=== PATIENT | male | born 1995 | race African-American/Black ===

== ENCOUNTER 2020-07-30 09:32 | Emergency (ER) | payer OTHER, SELFPAY ==
[2020-07-30 09:56] VITALS: BP 147/77; PULSE 93; RESP 16; TEMP 37.2; O2SAT 98; BMI 38.0
--- NOTE | 2020-07-30 10:15 | ED_ITS ---
HPI - Eye Problem General Chief complaint: Eye Problems Stated complaint: eye pain Time Seen by Provider: 07/30/20 10:00 Source: patient Mode of arrival: ambulatory History of Present Illness HPI Narrative: 25-year-old male presenting to ED complaining of right eye pain/ swelling since Thursday with slight drainage / blurry vision. denies wearing glasses or contacts. Denies trauma to area. Denies visual loss, pain with EOMs, FB sensation/known FB * Related Data Allergies Allergy/AdvReac Type Severity Reaction Status Date / Time kiwi [KIWI] Allergy Intermediate SWELLING Unverified 07/05/20 17:59 apple [APPLE] Allergy Unknown UNKOWN Unverified 07/05/20 17:59 banana [BANANA] Allergy Unknown UNKOWN Unverified 07/05/20 17:59 chicken derived Allergy Unknown UNKNOWN Unverified 07/05/20 17:59 ibuprofen [IBUPROFEN] Allergy Unknown HIVES Unverified 07/05/20 17:59 milk [MILK] Allergy Unknown UNKNOWN Unverified 07/05/20 17:59 peanut [PEANUT] Allergy Unknown UNKOWN Unverified 07/05/20 17:59 rice Allergy Unknown UNKNOWN Unverified 07/05/20 17:59 shrimp Allergy Unknown UNKNOWN Unverified 07/05/20 17:59 strawberry [STRAWBERRY] Allergy Unknown UNKNOWN Unverified 07/05/20 17:59 tomato [TOMATO] Allergy Unknown UNKNOWN Unverified 07/05/20 17:59 wheat [WHEAT] Allergy Unknown UNKNOWN Unverified 07/05/20 17:59 Review of Systems Review of Systems: Constitutional: No Weight loss, No Fever, No Chills ENT/Mouth: No Ear Pain, No Nasal Congestion, No Sinus Pain, No sore throat, No Rhinorrhea Eye: + eye pain, + blurry vision, no visual loss, + slight drainage /watering Cardiovascular: No Chest Pain, No SOB Respiratory: No Cough, No Sputum, No Wheezing Gastrointestinal: No Nausea, No Vomiting Skin: No Skin Lesions, No rash Yes all other systems are reviewed and are negative [facility] Past Medical History Attestation statement: The following information was validated with the patient. Medical History Asthma Eczema Meningitis Surgical History (Updated 07/30/20 @ 10:03 by Rosemary Sanchez) S/P appendectomy Social History Social History Advance Directives: No Advance Directives Information Provided: No Physical Exam Vital Signs: Vital Signs: Vital Signs Temp Pulse Resp BP Pulse Ox 07/30/20 09:56 98.9 F 93 16 147/77 H 98 Body Mass Index 38.0 Const: General: cooperative and healthy appearing Orientation/consciousness: patient oriented x3 Limitations: no limitations HENMT: Head: Yes normal to inspection Ears: hearing grossly normal bilaterally General nose exam: Normal external nose present Face and sinus: Yes normal facial exam Eyes: Other: VA 20/15 L eye 20/13 R eye General: appearance normal, both eyes and all related structures Visual Ryan: normal visual ryan by confrontation Eyelids: Yes eyelid abnormality ( right lower eyelid with internal stye. +Swelling/erythema and tenderness) Sclerae: sclerae normal Corneas: corneas normal Pupils: Equal, round and reactive pupils present EOM: EOMs intact bilaterally Direct Ophthalmoscopy: normal light reflex and no photophobia Neck: Neck: Yes normal visual inspection Resp: Effort & Inspection: normal respiratory effort Cardio: Rate: regular rate Skin: Rashes: no rashes Wounds: no wounds Neuro: General: patient oriented x3 Cranial nerves: Yes Equal, round and reactive pupils present Gait exam (Neuro): Normal gait present Extrem: General: Yes normal to inspection MDM - Eye Problem MDM Narrative Medical decision making narrative: physical exam consistent with Internal lower lid stye day. Low concern for corneal abrasion/ cellulitis or conjunctivitis Discharge Plan Discharge Clinical Impression: Hordeolum internum of right lower eyelid Patient Disposition: Home, Self-Care Instructions: Stye (ED) Additional Instructions: you have a stye in your eye. apply warm compresses multiple times a day, and milk the area keep dry and clean Do not put it contacts, or anything in her eye Follow up with her doctor If pain persists or worsens, he developed visual change or loss return to the ED Referrals: Kevin White [Physician] - 1 week (as needed) Stand Alone Forms: Work/School Release
[2020-07-30] MEDS: Tetracaine HCl/PF 0.5% Oph Sol 4 ML DROPS 1 DROP EYE-RIGHT (10:41)
[2020-07-30] MEDS: Fluorescein Sodium STRIP 1 STRIP EYE-RIGHT (10:41)
== END 2020-07-30 10:43 | disposition home or self-care (01) ==
PROVIDERS: Emergency Provider Emergency Medicine
DX: H00.022 Hordeolum internum right lower eyelid (principal)
CPT/HCPCS: 99283; 99284

== ENCOUNTER 2020-09-20 06:08 | Emergency (ER) | payer OTHER, SELFPAY ==
[2020-09-20 06:11] VITALS: BP 145/84; PULSE 88; RESP 16; TEMP 37.4; O2SAT 98; BMI 38.0
--- NOTE | 2020-09-20 06:37 | ED_ITS ---
HPI - URI/Sore Throat General Chief Complaint: Upper Respiratory Symptoms Stated Complaint: covid symptoms Time Seen by Provider: 09/20/20 06:25 Source: patient Mode of arrival: ambulatory Limitations: no limitations History of Present Illness HPI Narrative: This Is a 25-year-old male without significant past medical history who presents with body aches, headache, dry cough, but denies any shortness of breath or sore throat and states that there were some coworkers that he was exposed to that were known to be COVID-19 positive. Related Data Allergies Allergy/AdvReac Type Severity Reaction Status Date / Time kiwi [KIWI] Allergy Intermediate SWELLING Verified 09/20/20 06:22 apple [APPLE] Allergy Unknown UNKOWN Verified 09/20/20 06:22 banana [BANANA] Allergy Unknown UNKOWN Verified 09/20/20 06:22 chicken derived Allergy Unknown UNKNOWN Verified 09/20/20 06:22 ibuprofen [IBUPROFEN] Allergy Unknown HIVES Verified 09/20/20 06:22 milk [MILK] Allergy Unknown UNKNOWN Verified 09/20/20 06:22 peanut [PEANUT] Allergy Unknown UNKOWN Verified 09/20/20 06:22 rice Allergy Unknown UNKNOWN Verified 09/20/20 06:22 shrimp Allergy Unknown UNKNOWN Verified 09/20/20 06:22 strawberry [STRAWBERRY] Allergy Unknown UNKNOWN Verified 09/20/20 06:22 tomato [TOMATO] Allergy Unknown UNKNOWN Verified 09/20/20 06:22 wheat [WHEAT] Allergy Unknown UNKNOWN Verified 09/20/20 06:22 Review of Systems Review of Systems: Pertinent positives and negatives as stated in HPI 10 point review of systems otherwise negative [facility] Past Medical History Medical History Asthma Eczema Meningitis Surgical History S/P appendectomy Social History Social History Smoking Status: Never smoker Advance Directives: No Advance Directives Information Provided: No Physical Exam Vital Signs: Vital Signs: Last Vital Signs Temp 99.3 F 09/20/20 06:11 Pulse 88 09/20/20 06:11 Resp 16 09/20/20 06:11 BP 145/84 H 09/20/20 06:11 Pulse Ox 98 09/20/20 06:11 Body Mass Index 38.0 VITAL SIGNS: Reviewed. GENERAL: Well developed, well nourished, in no acute distress. HEAD: Normocephalic/atraumatic, EYES: PERRLA, EOMI intact without pain, no nystagmus/pallor/icterus noted EARS: Ext canals without abnormality, TMs non-bulging and non-erythematous NOSE: Nares patent bilateral OROPHARYNX: no oral lesions noted, posterior pharynx clear and non-erythematous without noted tonsillar enlargement/erythema/exudates NECK: Supple, no adenopathy LUNGS: Normal breath sounds. No adventitious sounds or accessory muscle use. SpO2<98> CARDIOVASCULAR: Regular rate and rhythm without noted murmurs, no JVD or lower extremity edema. ABDOMEN: Soft, non-tender, non-distended with bowel sounds. No rigidity. No guarding. No palpable masses or hernias noted MUSCULOSKELETAL: No tenderness, deformities, or effusions noted on gross inspection. EXTREMITIES: No cyanosis, clubbing or edema. SKIN: Inspection of the skin reveals no rashes, ulcerations, jaundice, pallor, or petechiae. NEUROLOGIC: Alert and oriented x 4. Strength and sensation to light touch were grossly intact x 4. Course Course Course Narrative: This is a 25-year-old male with history and clinical presentation most consistent with viral syndrome, he has not gotten his flu shot yet this year either, and is not noted to be hypoxic /tachypneic / tachycardic and was swabbed for COVID-19 this morning. He acknowledges understanding that he will need to self quarantine and tell he has called with the results. Patient was discharged in stable condition. Discharge Plan Discharge Clinical Impression: Viral syndrome Patient Disposition: Home, Self-Care Instructions: Viral Syndrome (ED) Additional Instructions: 1. Tylenol 1000 mg, orally, every 6 hours as needed for temperatures greater than 100.4 or body aches. Do not exceed 4000 mg within 24 hours. 2. ibuprofen 400 mg, orally with milk or food, every 6 hours as needed for temperatures greater than 100.4. 3. Increase fluid hydration especially with water. 4. you have been swabbed for COVID-19 today and are required by the [facility] to self quarantine until your called with the results. You should follow all [place] state guidelines regarding COVID-19 exposure. The patient and/or family acknowledge understanding of results (as applicable), diagnosis, treatment plan, need for follow up, and symptoms that should prompt a return to the emergency room. Referrals: Physician,None [Primary Care Provider] - 2 days
== END 2020-09-20 06:57 | disposition home or self-care (01) ==
PROVIDERS: Emergency Provider Student in an Organized Health Care Education/Training Program
DX: B34.9 Viral infection, unspecified (principal); Z20.828 Contact with and (suspected) exposure to other viral communicable diseases; J45.909 Unspecified asthma, uncomplicated
CPT/HCPCS: 99283; U0003

== ENCOUNTER 2021-02-22 11:47 | Emergency (ER) | payer OTHER, SELFPAY ==
--- NOTE | ~2021-02-22 | XR_ITS ---
EXAMINATION: XR ANKLE, RIGHT XR FOOT, RIGHT CLINICAL INFORMATION: Right foot injury. COMPARISON: None TECHNIQUE: 3 views right foot. 2 views right ankle. FINDINGS: Right foot: There is no visible acute fracture, dislocation or subluxation. The soft tissues are normal. Right ankle: There is bimalleolar soft tissue swelling, slightly greater on the lateral side. No visible fracture seen. There are 2 small bone fragments inferior to lateral malleolus likely related to old injury. A small bone fragment is also seen inferior to medial malleolus likely old injury, as well. XR/XR ankle RT min 3V IMPRESSION: No acute fracture or dislocation right ankle or right foot. Bimalleolar soft tissue swelling but no acute fracture seen in right ankle. There are old avulsion fracture fragments tip of medial and lateral malleolus.
--- NOTE | ~2021-02-22 | XR_ITS ---
EXAMINATION: XR ANKLE, RIGHT XR FOOT, RIGHT CLINICAL INFORMATION: Right foot injury. COMPARISON: None TECHNIQUE: 3 views right foot. 2 views right ankle. FINDINGS: Right foot: There is no visible acute fracture, dislocation or subluxation. The soft tissues are normal. Right ankle: There is bimalleolar soft tissue swelling, slightly greater on the lateral side. No visible fracture seen. There are 2 small bone fragments inferior to lateral malleolus likely related to old injury. A small bone fragment is also seen inferior to medial malleolus likely old injury, as well. XR/XR foot RT min 3V IMPRESSION: No acute fracture or dislocation right ankle or right foot. Bimalleolar soft tissue swelling but no acute fracture seen in right ankle. There are old avulsion fracture fragments tip of medial and lateral malleolus.
[2021-02-22 11:55] VITALS: BP 137/86; PULSE 100; RESP 18; TEMP 36.3; O2SAT 95; BMI 38.6
--- NOTE | 2021-02-22 14:06 | ED.LOWEXIN ---
HPI - Extremity Injury (Lower) General Chief Complaint: Extremity Injury, Lower Stated Complaint: ANKLE INJ Time Seen by Provider: 02/22/21 11:55 History of Present Illness HPI Narrative: Patient complains of right ankle pain and swelling after twisting it in tripping over a broken stair, no other injury no head injury no neck pain no back pain no numbness weakness or tingling Related Data Allergies Allergy/AdvReac Type Severity Reaction Status Date / Time kiwi [KIWI] Allergy Intermediate SWELLING Verified 09/20/20 06:22 apple [APPLE] Allergy Unknown UNKOWN Verified 09/20/20 06:22 banana [BANANA] Allergy Unknown UNKOWN Verified 09/20/20 06:22 chicken derived Allergy Unknown UNKNOWN Verified 09/20/20 06:22 ibuprofen [IBUPROFEN] Allergy Unknown HIVES Verified 09/20/20 06:22 milk [MILK] Allergy Unknown UNKNOWN Verified 09/20/20 06:22 peanut [PEANUT] Allergy Unknown UNKOWN Verified 09/20/20 06:22 rice Allergy Unknown UNKNOWN Verified 09/20/20 06:22 shrimp Allergy Unknown UNKNOWN Verified 09/20/20 06:22 strawberry [STRAWBERRY] Allergy Unknown UNKNOWN Verified 09/20/20 06:22 tomato [TOMATO] Allergy Unknown UNKNOWN Verified 09/20/20 06:22 wheat [WHEAT] Allergy Unknown UNKNOWN Verified 09/20/20 06:22 Review of Systems Review of Systems: Positive for right ankle pain and swelling Negatives are no fever no chills no dizziness no weakness no head injury no headache no neck pain no numbness weakness or tingling no back pain Yes all other systems are reviewed and are negative PMFSH Past Medical History Source: nursing notes reviewed Medical History Asthma Eczema Meningitis Surgical History S/P appendectomy Social History Social History Smoking Status: Never smoker Advance Directives: No Advance Directives Information Provided: Yes Physical Exam Vital Signs: Vital Signs: Last Vital Signs Temp 97.3 F 02/22/21 11:55 Pulse 100 02/22/21 11:55 Resp 18 02/22/21 11:55 BP 137/86 02/22/21 11:55 Pulse Ox 95 02/22/21 11:55 Body Mass Index 38.6 General appearance no acute distress Head is normocephalic atraumatic Neck is supple nontender Respiratory no distress Extremities the right ankle has tenderness and swelling around lateral malleolus, and so I am medial malleolar tenderness and swelling as well, neurovascular intact distal, skin is intact without wound or laceration, no deformity Course Course Course Narrative: X-ray showed a question avulsion fracture of the lateral malleolus but no other fracture, mortise was normal Patient will follow with orthopedist and is discharged Discharge Plan Discharge Clinical Impression: Right ankle sprain, Avulsion fracture of right ankle Patient Disposition: Home, Self-Care Additional Instructions: X-ray showed possible small avulsion fractures at the tip of the ankle, I am not sure if they are new or old These happen with ankle sprain when a small chip of bone is pulled off and are treated the same as an ankle sprain Weightbearing is okay as tolerated Apply ice and elevate leg when possible Follow with orthopedist Return any concerns Referrals: [facility] [Provider Group] - 2 days ([place] follow-up) Ethan Roth MD [Physician] - 2 days (Right ankle sprain with avulsion fragments) Stand Alone Forms: Work/School Release Interventions: ED Discharge Assessment Last Done: 02/22/21 14:19 Discharge Date/Time: 02/22/21 14:19
--- NOTE | 2021-02-22 14:18 | PC.NURSE ---
CRUTCHES AND AIR CAST APPLIED TO RIGHT FOOT PER VERBAL ORDER BY DAY JHA.
== END 2021-02-22 14:19 | disposition home or self-care (01) ==
PROVIDERS: Emergency Provider Emergency Medicine
DX: S93.491A Sprain of other ligament of right ankle, initial encounter (principal); W10.8XXA Fall (on) (from) other stairs and steps, initial encounter; Y93.89 Activity, other specified; Y92.018 Other place in single-family (private) house as the place of occurrence of the external cause; Y99.9 Unspecified external cause status
CPT/HCPCS: 73610; 73630; 99283

== ENCOUNTER 2021-04-24 13:45 | Emergency (ER) | payer OTHER, SELFPAY ==
--- NOTE | ~2021-04-24 | CT_ITS ---
EXAMINATION: CT HEAD WITHOUT CONTRAST CLINICAL INFORMATION: Severe headache. History of meningitis. COMPARISON: None TECHNIQUE: Contiguous axial imaging was performed from the skull base to vertex without intravenous administration of contrast. This CT examination was performed using dose optimization techniques as appropriate, variously including the following: *Automated exposure control *Adjustment of mA and/or kV according to patient size (this includes techniques or standardized protocols for targeted exams where dose is matched to indication/reason for exam; i.e. extremities or head) *Use of iterative reconstruction technique DLP: 831 mGy-cm FINDINGS: There is no evidence of acute intracranial hemorrhage or territorial infarction. No abnormal mass effect or midline shift is seen. [place] to white matter differentiation is well preserved. No extra-axial fluid collections are identified. The ventricles are normal in size. There is no abnormal attenuation within the brain parenchyma. The osseous structures and soft tissues are normal. There is mild inflammatory change seen in the sphenoid and bilateral maxillary sinuses. CT/CT head/brain wo con IMPRESSION: No acute intracranial pathology. Mild sinus disease.
[2021-04-24 14:05] VITALS: BP 126/86; PULSE 90; RESP 17; TEMP 36.8; O2SAT 96; BMI 42.9
--- NOTE | 2021-04-24 15:38 | ED.HA ---
HPI - Headache General Chief Complaint: Headache Stated Complaint: HEAD PAIN FROM BACK OF HEAD TO FRONT Time Seen by Provider: 04/24/21 15:38 Source: patient Mode of arrival: ambulatory Limitations: no limitations History of Present Illness HPI Narrative: patient does not suffer from headache. Patient was a teenager and had meningitis. No fever or shaking chills. Headache started this morning, described as throbbing, worse with movement MD elicited complaint: headache Onset description: gradually Location: occipital Severity: moderate Associated symptoms: nausea Related Data Allergies Allergy/AdvReac Type Severity Reaction Status Date / Time apple [APPLE] Allergy Intermediate Hives Verified 04/24/21 14:04 banana [BANANA] Allergy Intermediate Hives Verified 04/24/21 14:04 ibuprofen [IBUPROFEN] Allergy Intermediate HIVES Verified 04/24/21 14:04 kiwi [KIWI] Allergy Intermediate SWELLING Verified 04/24/21 14:04 milk [MILK] Allergy Mild Rash Verified 04/24/21 14:04 peanut [PEANUT] Allergy Mild Rash Verified 04/24/21 14:04 rice Allergy Mild Rash Verified 04/24/21 14:04 shrimp Allergy Mild Rash Verified 04/24/21 14:04 strawberry [STRAWBERRY] Allergy Mild Rash Verified 04/24/21 14:04 tomato [TOMATO] Allergy Mild Rash Verified 04/24/21 14:04 wheat [WHEAT] Allergy Mild Rash Verified 04/24/21 14:04 Review of Systems Constitutional: Constitutional: Reports no additional constitutional complaints Eyes: Eyes: Reports no additional eye complaints ENT: Denies dizziness Cardiovascular: Cardiovascular: Reports no additional cardiovascular complaints Respiratory: Respiratory: Reports as per HPI Gastrointestinal: Gastrointestinal: Reports no additional gastrointestinal complaints Musculoskeletal: Musculoskeletal: Reports no additional musculoskeletal complaints Integumentary/Breasts: Skin/Breast: Denies rash Neurologic: Reports system reviewed and no additional complaints, except as documented, Denies dizziness and Denies Sensory deficit (Neuro) Psychiatric: Psychiatric: Denies anxiety PMFSH Past Medical History Medical History Asthma Eczema Meningitis Surgical History S/P appendectomy Social History Social History Alcohol intake: never Patient Tobacco Use Status: Never used Tobacco Use of substances other than those prescribed or required for medical reasons: No Advance Directives: Yes Advance Directives Information Provided: Yes Advance Directives on File: No Physical Exam Vital Signs: Vital Signs: Last Vital Signs Temp 98.3 F 04/24/21 14:05 Pulse 71 04/24/21 16:12 Resp 17 04/24/21 14:05 BP 125/75 04/24/21 16:12 Pulse Ox 97 04/24/21 16:12 Body Mass Index 42.9 Const: General: healthy appearing Nutritional Appearance: average body habitus Orientation/consciousness: oriented to person and patient oriented x3 Limitations: no limitations HENMT: Head: Yes normal to inspection Ears: external ears normal General nose exam: Normal external nose present Mouth: Normal oral and palatal mucosa present and oropharynx normal Throat: Yes posterior oropharynx normal Eyes: General: appearance normal, both eyes and all related structures Neck: Other: supple Neck: Yes normal visual inspection Chest: Chest palpation & inspection: normal inspection of the chest Resp: Auscultation: clear to auscultation bilaterally Cardio: Jugular venous distension: no JVD Rate: regular rate Rhythm: regular rhythm Heart sounds: S1 normal heart sound present and S2 normal heart sound present GI: Inspection: Yes normal to inspection Palpation (GI): Soft to palpation, nontender and No hepatosplenomegaly present Auscultation: normal bowel sounds : General: Yes no CVA tenderness Back/Spine/Pelvis: Back: no CVA tenderness Skin: General skin exam: no rashes or lesions noted Neuro: General: oriented to person and patient oriented x3 Cranial nerves: Yes CN's II-XII intact bilaterally Motor exam (neuro): 5/5 motor strength present throughout Sensory Exam: No Sensory deficit (Neuro) Extrem: General: Yes normal to inspection Psych: Appearance: grossly normal Course Reevaluation(s) Reevaluation #1: patient has no evidence of meningitis, or bleed will sign out to Dr. Fleming. Obtained head CT because patient with no prior history of headache other than when he had meningits but He does not need LP today Time: 16:28 MDM - Headache Lab Data Result diagrams: 04/24/21 15:52 04/24/21 15:52 Labs: Lab Results 04/24/21 04/24/21 Range/Units 15:52 15:52 WBC 7.3 (4.8-10.8) X10*3/uL RBC 5.21 (4.60-5.80) X10*6/uL Hgb 14.9 (14.0-18.0) g/dl Hct 44.9 (42-52) % MCV 86.2 (80-98) fL MCH 28.6 (27.0-33.0) pg MCHC 33.2 (31.0-36.0) g/dl RDW 11.9 (11.0-16.0) % Plt Count 226 (160-400) X10*3/uL MPV 10.3 (9.4-12.4) fL Immature Gran % (Auto) 0.3 (0.0-0.4) % Neut % (Auto) 57.9 (45-73) % Lymph % (Auto) 32.5 (20-40) % Stafford % (Auto) 6.6 (2-11) % Eos % (Auto) 2.1 (0-4) % Baso % (Auto) 0.6 (0-2) % Lymph # (Auto) 2.4 (1.2-4.9) X10*3/uL Stafford # (Auto) 0.5 (0.1-1.2) X10*3/uL Eos # (Auto) 0.2 (0.0-0.4) X10*3/uL Baso # (Auto) 0.0 (0.0-0.2) X10*3/uL Abs Immat Gran (auto) 0.02 (0.00-0.03) X10*3/uL Absolute Neuts (auto) 4.2 (2.0-8.3) X10*3/uL Absolute Nucleated RBC 0.000 (0.0-0.012) X10*3/uL Nucleated RBC % (auto) 0.0 (0.0-0.2) /100WBC Sodium 141 (135-145) mmol/L Potassium 4.3 (3.3-5.1) mmol/L Chloride 106 (96-108) mmol/L Carbon Dioxide 29 (22-29) mmol/L Anion Gap 10 L (12-20) BUN 8 L (9-16) mg/dL Creatinine 0.85 (0.5-1.4) mg/dL Estim Creat Clear Calc 184.8 Estimated GFR > 60 Random Glucose 89 (60-115) mg/dL Calcium 9.3 (8.4-10.2) mg/dL
[2021-04-24 15:40] VITALS: BP 135/83; PULSE 70; O2SAT 98
[2021-04-24 15:56] LABS: MANUAL DIFF FLAG NO
[2021-04-24 16:00] LABS: Basophils Percent Auto 0.6 % (0-2); Eosinophils Absolute Auto 0.2 X10*3/uL (0.0-0.4); Eosinophils Percent Auto 2.1 % (0-4); Hematocrit 44.9 % (42-52); Hemoglobin 14.9 g/dl (14.0-18.0); Imm Gran Abs Auto 0.02 X10*3/uL (0.00-0.03); Imm Gran Pct Auto 0.3 % (0.0-0.4); Lymphocytes Absolute Auto 2.4 X10*3/uL (1.2-4.9); Lymphocytes Percent Auto 32.5 % (20-40); Mean Corpuscular HGB Conc 33.2 g/dl (31.0-36.0); Mean Corpuscular Hemoglobin 28.6 pg (27.0-33.0); Mean Corpuscular Volume 86.2 fL (80-98); Mean Platelet Volume 10.3 fL (9.4-12.4); Monocytes Absolute Auto 0.5 X10*3/uL (0.1-1.2); Monocytes Percent Auto 6.6 % (2-11); Neutrophils Absolute Auto 4.2 X10*3/uL (2.0-8.3); Neutrophils Percent Auto 57.9 % (45-73); Platelet Count 226 X10*3/uL (160-400); Red Blood Count 5.21 X10*6/uL (4.60-5.80); Red Cell Distribution Width 11.9 % (11.0-16.0); White Blood Count 7.3 X10*3/uL (4.8-10.8)
[2021-04-24] MEDS: 0.9 % Sodium Chloride 1,000 ML 999 ML IVCONT ×2 (16:05→16:06)
[2021-04-24] MEDS: Ketorolac Tromethamine 30 MG/ML VIAL IVPUSH (16:06)
[2021-04-24 16:12] VITALS: BP 125/75; PULSE 71; O2SAT 97
[2021-04-24 16:22] LABS: Anion Gap 10 (12-20); Blood Urea Nitrogen 8 mg/dL (9-16); Calcium 9.3 mg/dL (8.4-10.2); Carbon Dioxide 29 mmol/L (22-29); Chloride 106 mmol/L (96-108); Creatinine Clr Calc Pharmacy 184.8; Estimated Glomerular Filt Rate > 60; Glucose Random 89 mg/dL (60-115); Potassium 4.3 mmol/L (3.3-5.1); Sodium 141 mmol/L (135-145)
[2021-04-24 16:34] VITALS: BP 134/89; PULSE 85; RESP 16; TEMP 36.7; O2SAT 97
== END 2021-04-24 17:11 | disposition home or self-care (01) ==
PROVIDERS: Emergency Medicine; Emergency Provider Emergency Medicine
DX: R51.9 Headache, unspecified (principal); Z86.61 Personal history of infections of the central nervous system
CPT/HCPCS: 36415; 70450; 80048; 85025; 96361; 96374; 96375; 99284; J1885; J2550

== ENCOUNTER 2021-07-05 19:42 | Emergency (ER) | payer OTHER, SELFPAY ==
[2021-07-05 20:49] VITALS: BP 137/87; PULSE 99; RESP 16; TEMP 37.3; O2SAT 97; BMI 40.6
[2021-07-05 21:22] LABS: COVID-19 Test Positive (Negative)
--- NOTE | 2021-07-05 23:18 | ED_ITS ---
HPI - General Adult General Chief complaint: General Medical Stated complaint: Cough/Headache/Chest wall pain Time Seen by Provider: 07/05/21 23:17 Source: patient Mode of arrival: ambulatory Limitations: no limitations History of Present Illness HPI narrative: Patient is a 26-year-old male with no significant past medical history who is here complaining of 2 days of cough, sneezing, body aches, nausea, headache, fevers with a T-max of 101 degrees and vomiting x1 episode yesterday. He states he is not vaccinated for COVID. He is eating and drinking but he is eating and drinking less than normal. Related Data Previous Rx's Medication Instructions Recorded tramadol 50 mg tablet 50 - 100 mg PO Q6H PRN 2 Days #14 04/24/21 tab Allergies Allergy/AdvReac Type Severity Reaction Status Date / Time apple [APPLE] Allergy Intermediate Hives Verified 04/24/21 14:04 banana [BANANA] Allergy Intermediate Hives Verified 04/24/21 14:04 ibuprofen [IBUPROFEN] Allergy Intermediate HIVES Verified 04/24/21 14:04 kiwi [KIWI] Allergy Intermediate SWELLING Verified 04/24/21 14:04 milk [MILK] Allergy Mild Rash Verified 04/24/21 14:04 peanut [PEANUT] Allergy Mild Rash Verified 04/24/21 14:04 rice Allergy Mild Rash Verified 04/24/21 14:04 shrimp Allergy Mild Rash Verified 04/24/21 14:04 strawberry [STRAWBERRY] Allergy Mild Rash Verified 04/24/21 14:04 tomato [TOMATO] Allergy Mild Rash Verified 04/24/21 14:04 wheat [WHEAT] Allergy Mild Rash Verified 04/24/21 14:04 Review of Systems Review of Systems: Yes all other systems are reviewed and are negative PMF Past Medical History Medical History Asthma Eczema Meningitis Surgical History S/P appendectomy Social History Social History Alcohol intake: never Patient Tobacco Use Status: Never used Tobacco Advance Directives: No Physical Exam Vital Signs: Vital Signs: Last Vital Signs Temp 99.2 F 09/17/21 20:49 Pulse 99 07/05/21 20:49 Resp 16 07/05/21 20:49 BP 137/87 07/05/21 20:49 Pulse Ox 97 07/05/21 20:49 Body Mass Index 40.6 Const: General: cooperative, healthy appearing, comfortable and no acute distress Orientation/consciousness: patient oriented x3 Limitations: no limitations HENMT: Head: Yes normal to inspection Eyes: General: appearance normal, both eyes and all related structures Neck: Neck: Yes normal visual inspection and Yes full ROM Resp: Effort & Inspection: normal respiratory effort and able to speak in complete sentences Auscultation: clear to auscultation bilaterally Cardio: Rate: regular rate Rhythm: regular rhythm Heart sounds: normal S1 and S2 Skin: General skin exam: no rashes or lesions noted Neuro: General: patient oriented x3 Extrem: General: Yes normal to inspection Course Course Course Narrative: Patient is a 26-year-old male with no significant past medical history who is here complaining of 2 days of cough, sneezing, body aches, nausea, headache, fevers with a T-max of 101 degrees and vomiting x1 episode yesterday. VSS, physical exam unremarkable, patient was well appearing. Covid +. Will discharge. Medical Decision Making Lab Data Labs: Lab Results 07/05/21 Range/Units 20:54 COVID-19 (JOHN) Positive A (Negative) COVID-19 Clin Com See Note Discharge Plan Discharge Clinical Impression: COVID-19 Patient Disposition: Home, Self-Care Instructions: COVID-19 (Coronavirus Disease 2019) (ED) Additional Instructions: As discussed, please treat her symptoms at home as. Please core in teen for a total of 14 days from the day your symptoms 1st started. Please also get vaccinated in 90 days! If your symptoms worsen, you develop chest pain or short ness of breath, please return to the emergency department. Prescriptions: No Action tramadol 50 mg tablet 50 - 100 mg PO Q6H PRN (Reason: pain) 2 Days Qty: 14 RF: 0 Stand Alone Forms: Work/School Release Interventions: ED Discharge Assessment Last Done: 07/05/21 23:39 Discharge Date/Time: 07/05/21 23:42
== END 2021-07-05 23:42 | disposition home or self-care (01) ==
PROVIDERS: Emergency Provider Internal Medicine
DX: U07.1 COVID-19 (principal); R50.9 Fever, unspecified; R05 Cough; M79.10 Myalgia, unspecified site
CPT/HCPCS: 36415; 87635; 99283

== ENCOUNTER 2022-08-25 13:52 | Emergency (ER) | payer OTHER, SELFPAY ==
--- NOTE | ~2022-08-25 | XR_ITS ---
EXAMINATION: XR FOOT, RIGHT CLINICAL INFORMATION: Pain fifth toe COMPARISON: None TECHNIQUE: AP, lateral, and oblique views of the right foot. FINDINGS: Hairline fracture through the proximal phalanx of the fifth toe. Alignment is preserved. The fifth MTP joint is intact. No other fractures are questionable fractures are seen. XR/XR foot RT 2V IMPRESSION: Fracture as described.
--- NOTE | 2022-08-25 16:05 | PC.NURSE ---
no answer at [id number], [id number]
[2022-08-25 16:08] VITALS: BP 144/89; PULSE 80; RESP 18; TEMP 36.8; O2SAT 99; BMI 40.6
--- NOTE | 2022-08-25 16:27 | ED.LOWEXIN ---
HPI - Extremity Injury (Lower) General Chief Complaint: Extremity Injury, Lower Stated Complaint: R PINKY TOE PAIN S/P STUBBING PER EMS Time Seen by Provider: 08/25/22 16:27 Source: patient Mode of arrival: EMS Limitations: no limitations History of Present Illness HPI Narrative: This is a 27 years old male who arrives by ambulance complaining of right 5th toe pain and swelling after coffee table he fell over the right foot. No other injury no neck pain no abdominal pain MD complaint: other (rt 5th toe injury) Type of Injury: blunt Severity: moderate Relieving factors: nothing Exacerbating factors: weight bearing Context: direct blow Other symptoms: none Related Data Previous Rx's Medication Instructions Recorded tramadol 50 mg tablet 50 - 100 mg PO Q6H PRN pain 2 days 04/24/21 #14 tabs tramadol 50 mg tablet 50 mg PO Q8H PRN pain #12 tabs 08/25/22 Allergies Allergy/AdvReac Type Severity Reaction Status Date / Time apple [APPLE] Allergy Intermediate Hives Verified 04/24/21 14:04 banana [BANANA] Allergy Intermediate Hives Verified 04/24/21 14:04 ibuprofen [IBUPROFEN] Allergy Intermediate HIVES Verified 04/24/21 14:04 kiwi [KIWI] Allergy Intermediate SWELLING Verified 04/24/21 14:04 milk [MILK] Allergy Mild Rash Verified 04/24/21 14:04 peanut [PEANUT] Allergy Mild Rash Verified 04/24/21 14:04 rice Allergy Mild Rash Verified 04/24/21 14:04 shrimp Allergy Mild Rash Verified 04/24/21 14:04 strawberry [STRAWBERRY] Allergy Mild Rash Verified 04/24/21 14:04 tomato [TOMATO] Allergy Mild Rash Verified 04/24/21 14:04 wheat [WHEAT] Allergy Mild Rash Verified 04/24/21 14:04 Review of Systems Constitutional: Constitutional: Reports no additional constitutional complaints Cardiovascular: Cardiovascular: Reports no additional cardiovascular complaints Respiratory: Respiratory: Reports no additional respiratory complaints Gastrointestinal: Gastrointestinal: Denies abdominal pain Musculoskeletal: Musculoskeletal: Reports no additional musculoskeletal complaints PMFSH Past Medical History Medical History Asthma Eczema Meningitis Surgical History S/P appendectomy Social History Social History Alcohol intake: never Patient Tobacco Use Status: Never used Tobacco Advance Directives: No Advance Directives Information Provided: No Physical Exam Vital Signs: Vital Signs: Last Vital Signs Temp 98.3 F 08/25/22 16:08 Pulse 80 08/25/22 16:08 Resp 18 08/25/22 16:08 BP 144/89 H 08/25/22 16:08 Pulse Ox 99 08/25/22 16:08 O2 Del Method 08/25/22 16:08 BMI result Body Mass Index 40.6 Const: General: healthy appearing, no acute distress, well developed and awake Nutritional Appearance: average body habitus and well nourished HEENT: Head: Yes normal to inspection General nose exam: Normal external nose present Mouth: Normal oral and palatal mucosa present Neck: Neck: Yes normal visual inspection and Yes full ROM Chest: Chest palpation & inspection: normal inspection of the chest Resp: Effort & Inspection: normal respiratory effort Auscultation: clear to auscultation bilaterally Cardio: Jugular venous distension: no JVD Rate: regular rate Rhythm: regular rhythm GI: Inspection: Yes normal to inspection Palpation (GI): Soft to palpation and not firm Skin: General skin exam: no rashes or lesions noted and elasticity normal Extrem: Other: tenderness over rt 5th toe ,minimal swelling MDM - Extremity Injury (Lower) Imaging Data foot xra rt: Radiologist's impression: XR FOOT, RIGHT CLINICAL INFORMATION: Pain fifth toe? COMPARISON: None? TECHNIQUE: AP, lateral, and oblique views of the right foot. FINDINGS: Hairline fracture through the proximal phalanx of the fifth toe. Alignment is preserved. The fifth MTP joint is intact. No other fractures are questionable fractures are seen.? XR/XR foot RT 2V IMPRESSION: Fracture as described. Discharge Plan Discharge Clinical Impression: Fracture of toe Patient Disposition: Home, Self-Care Instructions: Toe Fracture (ED) Additional Instructions: dollow up with Ortho keep foot elevated Prescriptions: New tramadol 50 mg tablet 50 mg PO Q8H PRN (Reason: pain) Qty: 12 0RF No Action tramadol 50 mg tablet 50 - 100 mg PO Q6H PRN (Reason: pain) 2 Days Qty: 14 0RF Referrals: Ethan Roth MD [Physician] - 3 days Stand Alone Forms: Work/School Release Interventions: ED Discharge Assessment Last Done: 08/25/22 16:39 Discharge Date/Time: 08/25/22 16:58
== END 2022-08-25 16:58 | disposition home or self-care (01) ==
LOC: HO.ED 16:36
PROVIDERS: Emergency Provider Emergency Medicine
DX: S92.511A Displaced fracture of proximal phalanx of right lesser toe(s), initial encounter for closed fracture (principal); W22.03XA Walked into furniture, initial encounter; Y93.89 Activity, other specified; Y92.019 Unspecified place in single-family (private) house as the place of occurrence of the external cause; Y99.9 Unspecified external cause status
CPT/HCPCS: 73620; 99282; 99283

== ENCOUNTER 2022-09-04 07:04 | Outpatient (REF) | payer OTHER, SELFPAY ==
--- NOTE | ~2022-09-04 | XR_ITS ---
EXAMINATION: XR FOOT, RIGHT CLINICAL INFORMATION: Pain COMPARISON: Previous x-ray most recent 08/25/2022 TECHNIQUE: AP, lateral, and oblique views of the right foot. FINDINGS: Healing fracture proximal phalanx fifth toe. Alignment unchanged. No other fracture. Normal joint spaces. Normal soft tissues. XR/XR foot RT min 3V IMPRESSION: Healing fracture proximal phalanx right fifth toe.
== END 2022-09-04 07:05 | disposition home or self-care (01) ==
LOC: HO.HOSX 07:04
PROVIDERS: Visit Provider Physician Assistant
DX: S92.911A Unspecified fracture of right toe(s), initial encounter for closed fracture (principal)
CPT/HCPCS: 73630; 99202

== ENCOUNTER 2024-10-13 19:14 | Emergency (ER) | payer OTHER, SELFPAY ==
[2024-10-13 19:34] VITALS: BP 145/94; PULSE 68; RESP 18; TEMP 36.7; O2SAT 100; BMI 35.5
--- NOTE | 2024-10-13 19:36 | ED_ITS ---
HPI - General Adult General Chief complaint: General Medical Stated complaint: elevated blood sugars Time Seen by Provider: 10/14/24 00:31 Source: patient Mode of arrival: ambulatory Limitations: no limitations History of Present Illness ED Provider: DR. Rosales HPI narrative: This is a 29-year-old male history of type 2 diabetes used to be managed by metformin that he is not using any more because he lost his health insurance and could not use the metformin because the health insurance. Patient was evaluated at urgent care for COVID symptoms and was sent here because his blood sugar was high and was a concern of DKA. Related Data Previous Rx's ?Medication ?Instructions ?Recorded tramadol 50 mg tablet 50 - 100 mg (1 - 2 x 50 mg) PO Q6H 04/24/21 PRN pain 2 days #14 tabs tramadol 50 mg tablet 50 mg PO Q8H PRN pain #12 tabs 08/25/22 metformin 500 mg tablet 500 mg PO BID #30 tabs 10/14/24 Allergies Allergy/AdvReac Type Severity Reaction Status Date / Time apple [APPLE] Allergy Intermediate Hives Verified 10/13/24 19:38 banana [BANANA] Allergy Intermediate Hives Verified 10/13/24 19:38 ibuprofen [IBUPROFEN] Allergy Intermediate HIVES Verified 10/13/24 19:38 kiwi [KIWI] Allergy Intermediate SWELLING Verified 10/13/24 19:38 milk [MILK] Allergy Mild Rash Verified 10/13/24 19:38 peanut [PEANUT] Allergy Mild Rash Verified 10/13/24 19:38 rice Allergy Mild Rash Verified 10/13/24 19:38 shrimp Allergy Mild Rash Verified 10/13/24 19:38 strawberry [STRAWBERRY] Allergy Mild Rash Verified 10/13/24 19:38 tomato [TOMATO] Allergy Mild Rash Verified 10/13/24 19:38 wheat [WHEAT] Allergy Mild Rash Verified 10/13/24 19:38 Review of Systems 2 Review of Systems: All other systems are reviewed and are negative Constitutional: Reports as per HPI and Reports no additional constitutional complaints Eyes: Reports as per HPI and Reports no additional eye complaints Reports system reviewed and no additional complaints, except as documented Cardiovascular: Reports as per HPI and Reports no additional cardiovascular complaints Respiratory: Reports as per HPI and Reports no additional respiratory complaints Gastrointestinal: Reports as per HPI and Reports no additional gastrointestinal complaints Genitourinary: Reports no additional female genitourinary complaints Musculoskeletal: Reports no additional musculoskeletal complaints Skin/Breast: Reports system reviewed and no additional complaints, except as docu Psychiatric: Reports no additional psychiatric complaints Endocrine: Reports no additional endocrine complaints Hematologic/Lymphatic: Reports no additional hematologic/lymphatic complaints Allergic/Immunologic: Reports no additional allergic/immunologic complaints Reports system reviewed and no additional complaints, except as documented and Reports Abnormal speech present [facility] Past Medical History Medical History Meningitis Eczema Asthma Surgical History S/P appendectomy Social History Social History Alcohol intake: never Patient Tobacco Use Status: Never used Tobacco Advance Directives: No Do you have a plan to hurt others: No Plan Current occupational status: employed Current occupation: life coach/ right hand dominant Physical Exam ED Vital Signs: Vital Signs - 24 hr 10/13/24 19:34 10/14/24 00:19 Temperature 98.0 F 97.0 F Pulse Rate 68 80 Respiratory Rate 18 18 Blood Pressure 145/94 H Pulse Oximetry 100 100 Oxygen Delivery Method Room Air Room Air BMI result Body Mass Index 35.5 Vital signs have been reviewed and appear to be correct. Blood pressure elevated. Heart rate normal. Respiratory rate normal. Temperature normal. Oxygen saturation normal. Appearance: Alert. Oriented X3. No acute distress. Head: Normal external exam. Normocephalic. Atraumatic. No Amos signs noted. No raccoon eyes noted Eyes: PERRLA. EOMI. Conjunctiva and sclera normal. Eyelids normal. ENT: TM's Normal. Pharynx normal. Uvula midline. Moist mucous membranes. No trismus noted. No drooling noted. No muffled voice noted. Neck: Normal inspection. Neck supple. FROM. No adenopathy. Thyroid Normal. No meningeal signs. No neck mass noted. CVS: Normal heart rate and rhythm. Heart sound normal. No murmurs noted. Pulses normal throughout. Respiratory: No respiratory distress. Painless inspiration. Breath sounds normal. No wheezes/rales/rhonchi noted. Chest nontender. No accessory muscle usage noted or decreased air movement noted. Abdomen: Soft and nontender. Bowel sounds normal in all 4 quadrants. No distention noted. No organomegaly noted. No visible injury noted. Back: No CVA tenderness. Full range of motion noted. Skin: Skin warm and dry. Normal skin color. Normal skin turgor. No rashes/lesions/lacerations noted. Extremities: No lower extremity edema. Extremities exhibit normal range of motion. Extremities nontender. Neuro: Oriented X 3. Cranial nerve exam: II-XII are grossly intact No motor deficit. No sensory deficit. Reflexes normal. Course Course Course Narrative: RME, this is a rapid medical exam performed by Junior Bundy please refer to primary provider for complete H&P- 29-year-old male with history of diabetes and asthma presents for evaluation elevated blood sugar and cover positive diagnosis. Patient tested positive for COVID this morning, his sugars were found to be over 400 sent here for further evaluation management. The patient takes Dupixent for eczema. Plan for labs including beta hydroxybutyrate Reevaluation(s) Reevaluation #1: 29-year-old male history of type 2 diabetes use to manage on metformin that he is not using for a while now secondary to [facility] [employer] insurance, sent from urgent care for evaluation of hyperglycemia. Patient is already scheduled to see his PCP next week under the [employer] insurance. Time: 03:00 Medical Decision Making Differential Diagnosis Differential Diagnoses: The differential diagnosis associated with the presentation includes (COVID infection, hyperglycemia, DKA, electrolyte derangement, severe anemia.) Admission/Observation Consideration of admission/observation: Escalation of care including admission/observation considered Lab Data [facility] Lab Attestation statement: I reviewed the patient's lab results. 10/13/24 19:43 10/13/24 19:43 Labs: Lab Results 10/13/24 Range/Units 19:43 WBC 7.0 (4.8-10.8) X10*3/uL RBC 5.36 (4.60-5.80) X10*6/uL Hgb 15.0 (14.0-18.0) g/dl Hct 44.5 (42.0-52.0) % MCV 83.0 (80.0-98.0) fL MCH 28.0 (27.0-33.0) pg MCHC 33.7 (31.0-36.0) g/dl RDW 11.5 (11.0-16.0) % Plt Count 193 (160-400) X10*3/uL MPV 11.3 (9.4-12.4) fL Immature Gran % (Auto) 0.3 (0.0-0.4) % Neut % (Auto) 59.5 (45-73) % Lymph % (Auto) 29.8 (20-40) % [place] % (Auto) 6.4 (2-11) % Eos % (Auto) 3.7 (0-4) % Baso % (Auto) 0.3 (0-2) % Lymph # (Auto) 2.1 (1.2-4.9) X10*3/uL [place] # (Auto) 0.5 (0.1-1.2) X10*3/uL Eos # (Auto) 0.3 (0.0-0.4) X10*3/uL Baso # (Auto) 0.0 (0.0-0.2) X10*3/uL Abs Immat Gran (auto) 0.02 (0.00-0.03) X10*3/uL Absolute Neuts (auto) 4.2 (2.0-8.3) x10*3/uL Absolute Nucleated RBC 0.000 (0.0-0.012) X10*3/uL Nucleated RBC % (auto) 0.0 (0.0-0.2) /100WBC Sodium 134 L (135-145) mmol/L Potassium 4.3 (3.3-5.1) mmol/L Chloride 101 (96-108) mmol/L Carbon Dioxide 29 (22-29) mmol/L Anion Gap 8 L (12-20) BUN 10 (9-16) mg/dL Creatinine 0.89 (0.5-1.4) mg/dL Estim Creat Clear Calc 155.3 Estimated GFR > 60 Random Glucose 479 H* (60-115) mg/dL Calcium 9.1 (8.4-10.2) mg/dL Total Bilirubin 0.4 (0.0-1.0) mg/dL AST 26 (5-37) U/L ALT 41 H (0-40) U/L Alkaline Phosphatase 93 (39-117) U/L Total Protein 6.9 (6.5-8.0) g/dL Albumin 3.8 (3.5-5.0) g/dL Lipase 26 (8-78) U/L Beta-Hydroxybutyrate 0.08 (0.02-0.27) mmol/L Discharge Plan Discharge Clinical Impression: Hyperglycemia due to type 2 diabetes mellitus Patient Disposition: Still a Patient Instructions: Type 2 Diabetes in Adults: New Diagnosis (DC) Prescriptions: New metformin 500 mg tablet 500 mg PO BID Qty: 30 0RF No Action tramadol 50 mg tablet 50 - 100 mg PO Q6H PRN (Reason: pain) 2 Days Qty: 14 0RF tramadol 50 mg tablet 50 mg PO Q8H PRN (Reason: pain) Qty: 12 0RF Referrals: Azam Mims MD [Primary Care Provider] - Print Language: Croatian
[2024-10-13 19:51] LABS: MANUAL DIFF FLAG NO
[2024-10-13 19:53] LABS: Basophils Percent Auto 0.3 % (0-2); Eosinophils Absolute Auto 0.3 X10*3/uL (0.0-0.4); Eosinophils Percent Auto 3.7 % (0-4); Hematocrit 44.5 % (42.0-52.0); Imm Gran Abs Auto 0.02 X10*3/uL (0.00-0.03); Imm Gran Pct Auto 0.3 % (0.0-0.4); Lymphocytes Absolute Auto 2.1 X10*3/uL (1.2-4.9); Lymphocytes Percent Auto 29.8 % (20-40); Mean Corpuscular HGB Conc 33.7 g/dl (31.0-36.0); Mean Platelet Volume 11.3 fL (9.4-12.4); Monocytes Absolute Auto 0.5 X10*3/uL (0.1-1.2); Monocytes Percent Auto 6.4 % (2-11); Neutrophils Absolute Auto 4.2 x10*3/uL (2.0-8.3); Neutrophils Percent Auto 59.5 % (45-73); Platelet Count 193 X10*3/uL (160-400); Red Blood Count 5.36 X10*6/uL (4.60-5.80); Red Cell Distribution Width 11.5 % (11.0-16.0)
[2024-10-13 20:19] LABS: Alanine Aminotransferase 41 U/L (0-40); Albumin Level 3.8 g/dL (3.5-5.0); Alkaline Phosphatase 93 U/L (39-117); Anion Gap 8 (12-20); Aspartate Amino Transferase 26 U/L (5-37); Beta-Hydroxybutyrate 0.08 mmol/L (0.02-0.27); Bilirubin Total 0.4 mg/dL (0.0-1.0); Blood Urea Nitrogen 10 mg/dL (9-16); Calcium 9.1 mg/dL (8.4-10.2); Carbon Dioxide 29 mmol/L (22-29); Chloride 101 mmol/L (96-108); Creatinine Clr Calc Pharmacy 155.3; Estimated Glomerular Filt Rate > 60; Glucose Random 479 mg/dL (60-115); Lipase 26 U/L (8-78); Potassium 4.3 mmol/L (3.3-5.1); Sodium 134 mmol/L (135-145); Total Protein 6.9 g/dL (6.5-8.0)
[2024-10-14 00:19] VITALS: PULSE 80; RESP 18; TEMP 36.1; O2SAT 100
[2024-10-14] MEDS: metFORMIN HCl 1,000 MG TABLET 1000 MG PO (01:05)
[2024-10-14 01:07] VITALS: BP 110/93; PULSE 78; RESP 18; TEMP 36.6; O2SAT 100
[2024-10-14 04:25] LABS: Glucose, Whole Blood 332 mg/dL (60-115)
[2024-10-14 06:43] VITALS: BP 125/73; PULSE 75; RESP 18; TEMP 36.7; O2SAT 100
[2024-10-17 07:55] LABS: Glucose, Whole Blood 394 mg/dL (60-115)
== END 2024-10-14 06:54 | disposition home or self-care (01) ==
PROVIDERS: Physician Assistant; Emergency Provider Emergency Medicine; PCP Internal Medicine
DX: E11.65 Type 2 diabetes mellitus with hyperglycemia (principal); Z79.84 Long term (current) use of oral hypoglycemic drugs; Z79.899 Other long term (current) drug therapy
CPT/HCPCS: 36415; 80053; 82010; 82947; 83690; 85025; 99283; 99284